=== PATIENT | female | born 1960 | race Caucasian/White ===

== ENCOUNTER 2017-08-01 12:53 | Emergency (ER) | payer BC ==
[~2017-08-01] VITALS: Ht 152.4 cm; Wt 62.0 kg
[2017-08-01] MEDS ORDERED: PREDNISONE50 MG PO (13:44)
[2017-08-01] MEDS ORDERED: TRAMADOL HYDROC50 MG PO (13:44)
[2017-08-01 13:53] VITALS: BP 121/74
== END 2017-08-01 13:53 | disposition home or self-care (01) | DRG 607 ==
LOC: ED 12:53
DX: R21 Rash and other nonspecific skin eruption (principal)

== ENCOUNTER 2017-08-07 13:06 | Emergency (ER) | payer BC ==
[~2017-08-07] VITALS: Ht 152.4 cm; Wt 64.2 kg
[~2017-08-07 13:06] MED LIST: PREDNISONE50 MG PO; TRAMADOL HYDROC50 MG PO
[2017-08-07] MEDS ORDERED: BACTRIM DS1 TAB PO (13:27)
[2017-08-07 14:23] VITALS: BP 135/68
[2017-08-07] MEDS ORDERED: ZOFRAN ODT4 MG PO (14:35)
[2017-08-07] MEDS ORDERED: LORTAB 5/3255 MG PO (14:35)
[2017-08-07] MEDS ORDERED: VALTREX1 GM PO (14:35)
== END 2017-08-07 15:05 | disposition home or self-care (01) | DRG 596 ==
LOC: ED 13:06
DX: B02.9 Zoster without complications (principal)

== ENCOUNTER 2019-06-21 11:40 | Emergency (ER) | payer SELFPAY ==
[~2019-06-21] VITALS: Ht 152.4 cm; Wt 65.0 kg
[~2019-06-21 11:40] MED LIST changes: +BACTRIM DS1 TAB PO; +LORTAB 5/3255 MG PO; +VALTREX1 GM PO; +ZOFRAN ODT4 MG PO
[2019-06-21 12:56] LABS: HEMATOCRIT 38.3 % (37.0-47.0); HEMOGLOBIN 12.2 g/dl (12.0-16.0); IMMATURE GRANULOCYTES 0.3 % (0.0-5.0); MEAN CELL VOLUME 90.8 fL CALC (80.0-100.0); MEAN CORPUSCULAR HGB 28.9 pG CALC (26.0-32.0); MEAN CORPUSCULAR HGB CONC 31.9 g/L CALC (32.0-36.0); NEUT# 7.41 thou/uL (2.00-7.15); RED BLOOD COUNT 4.22 mill/uL (4.20-5.60); RED CELL DISTRI WIDTH 12.9 % (11.5-15.5)
[2019-06-21 13:12] LABS: ALBUMIN 4.4 g/dL (3.2-5.0); ALKALINE PHOSPHATASE 84 u/l (38-126); ANION GAP 12 (6-22 (CALC)); BILIRUBIN, TOTAL 0.7 mg/dL (0.0-1.4); BUN 24 mg/dL (7-17); BUN/CREATININE RATIO 43 (12-20 (CALC)); CARBON DIOXIDE 28 mmol/l (22-30); CHLORIDE 104 mmol/l (95-108); CREATININE 0.6 mg/dL (0.5-1.0); GFR > 60 ML/MIN (>=60 (CALC)); GFR FOR AFR.AMER. > 60 ML/MIN (>=60 (CALC)); POTASSIUM 4.1 mmol/l (3.5-5.1); SGOT/AST 24 u/l (14-36); SODIUM 140 mmol/l (137-146); TOTAL PROTEIN 7.7 g/dL (6.3-8.2)
[2019-06-21] MEDS ORDERED: MEDDOSEPAK PO (13:57)
[2019-06-21] MEDS ORDERED: TRAMADOL HYDROC50 MG PO (13:57)
[2019-06-21 14:07] VITALS: BP 124/64
== END 2019-06-21 14:37 | disposition home or self-care (01) | DRG 74 ==
LOC: ED 11:40
DX: M54.10 Radiculopathy, site unspecified (principal); G56.92 Unspecified mononeuropathy of left upper limb; R03.0 Elevated blood-pressure reading, without diagnosis of hypertension

== ENCOUNTER 2021-01-23 19:34 | Emergency (ER) | payer BC ==
[~2021-01-23] VITALS: Ht 152.4 cm; Wt 61.4 kg
[~2021-01-23 19:34] MED LIST changes: +MEDDOSEPAK PO
[2021-01-23 23:46] LABS: HEMATOCRIT 36.7 % (37.0-47.0); HEMOGLOBIN 11.6 g/dl (12.0-16.0); IMMATURE GRANULOCYTES 0.6 % (0.0-5.0); MEAN CELL VOLUME 90.8 fL CALC (80.0-100.0); MEAN CORPUSCULAR HGB 28.7 pG CALC (26.0-32.0); MEAN CORPUSCULAR HGB CONC 31.6 g/dL CAL (32.0-36.0); NEUT# 13.84 thou/uL (2.00-7.15); RED BLOOD COUNT 4.04 mill/uL (4.20-5.60); RED CELL DISTRI WIDTH 13.1 % (11.5-15.5)
[2021-01-24 00:06] LABS: ACT PARTIAL THROMBO TIME 20.5 SECONDS (20.0-32.5); INTERNATIONAL NORMALIZED RATIO 1.1 RATIO (0.7-1.3); PROTHROMBIN TIME 10.9 SECONDS (9.0-12.5)
[2021-01-24 00:07] LABS: ALBUMIN 4.1 g/dL (3.2-5.0); ALKALINE PHOSPHATASE 77 u/l (38-126); ANION GAP 11 (6-22 (CALC)); BILIRUBIN, TOTAL 0.6 mg/dL (0.0-1.4); BUN 24 mg/dL (7-17); BUN/CREATININE RATIO 41 (12-20 (CALC)); CARBON DIOXIDE 26 mmol/l (22-30); CHLORIDE 104 mmol/l (95-108); CREATININE 0.6 mg/dL (0.5-1.0); GFR > 60 ML/MIN (>=60 (CALC)); GFR FOR AFR.AMER. > 60 ML/MIN (>=60 (CALC)); POTASSIUM 4.1 mmol/l (3.5-5.1); SODIUM 136 mmol/l (137-146); TOTAL PROTEIN 7.1 g/dL (6.3-8.2)
[2021-01-24 00:09] LABS: SGOT/AST 47 u/l (14-36)
[2021-01-24 00:59] VITALS: BP 104/53
== END 2021-01-24 00:19 | DRG 563 ==
LOC: ED 19:34
PROVIDERS: Emergency Medicine
PROC: 2W3AXYZ Immobilization of Right Upper Arm using Other Device (ICD-10-PCS; principal; 2021-01-23)
DX: S42.291A Other displaced fracture of upper end of right humerus, initial encounter for closed fracture (principal); M25.551 Pain in right hip; V80.010A Animal-rider injured by fall from or being thrown from horse in noncollision accident, initial encounter; Y93.52 Activity, horseback riding; Y92.009 Unspecified place in unspecified non-institutional (private) residence as the place of occurrence of the external cause